=== PATIENT | male | born 1955 | race Caucasian/White ===

== ENCOUNTER 2017-12-13 23:37 | Inpatient (IN) | payer MEDICARE, OTHER ==
[~2017-12-13] VITALS: Ht 172.7 cm; Wt 69.6 kg
[2017-12-13] MEDS ORDERED: SODIUM CHLORIDE 0.9% 1,000 ML IV ONE (23:41)
[2017-12-13] MEDS ORDERED: ALBUTEROL/IPRATROPIUM 2.5MG/0.5MG, 3 ML ONE (23:42)
[2017-12-13] MEDS ORDERED: DILTIAZEM 125 MG in DEXTROSE 5% 100 ML IV SCH (23:45)
[2017-12-13] MEDS: ALBUTEROL/IPRATROPIUM 2.5MG/0.5MG, 3 ML NPPB SCH (23:45)
[2017-12-13] MEDS ORDERED: DILTIAZEM 5 MG/ML, 5ML ONE (23:46)
[2017-12-14] MEDS ORDERED: DILTIAZEM 5 MG/ML, 5ML IV ONE
[2017-12-14] MEDS ORDERED: AZITHROMYCIN 500 MG in SODIUM CHLORIDE 0.9% 250 ML IVPB ONE
[2017-12-14] MEDS ORDERED: SODIUM CHLORIDE FLUSH 10ML SYR IVF ONE
[2017-12-14] MEDS ORDERED: CEFTRIAXONE PMX 1GM/50ML 50 ML IVPB ONE
[2017-12-14 00:02] LABS: MEAN CORPUSCULAR HEMOGLOBIN 32.8 pg (27.5-34.5); MEAN CORPUSCULAR HGB CONC 32.3 g/dL (33.2-36.2); MEAN CORPUSCULAR VOLUME 101.6 fL (81-97); MEAN PLATELET VOLUME 9.6 fL (7.4-10.4); PLATELET COUNT 130 x10^3/uL (130-400); RED BLOOD COUNT 4.44 x10^6/uL (4.38-5.82); RED CELL DISTRIBUTION WIDTH 17.3 % (9.4-14.8)
[2017-12-14] MEDS ORDERED: CEFTRIAXONE PMX 1GM/50ML 50 ML ONE (00:05)
[2017-12-14 00:11] LABS: INTERNATIONAL NORMALIZED RATIO 1.04 (0.93-1.1); PROTHROMBIN TIME 10.7 Seconds (9.6-11.5)
[2017-12-14 00:16] LABS: ALANINE AMINOTRANSFERASE 46 U/L (12-78); ALBUMIN 2.8 g/dL (3.4-5.0); ANION GAP 24 mmol/L (5-15); CALCIUM 8.8 mg/dL (8.5-10.1); CHLORIDE 91 mmol/L (98-107); CREATININE 2.92 mg/dL (0.7-1.3); T4 (THYROXINE) 8.2 mcg/dL (4.5-12.1)
[2017-12-14 00:22] LABS: MD YES
[2017-12-14 00:26] LABS: ALKALINE PHOSPHATASE 33 U/L (45-117); BILIRUBIN,TOTAL 1.5 mg/dL (0.2-1.0); TOTAL PROTEIN 8.3 g/dL (6.4-8.2)
[2017-12-14 00:28] LABS: BAND#(MANUAL) 8.32 x10^3/uL; BANDS%(MANUAL) 32 % (0-7); LYMPH#(MANUAL) 0.78 x10^3/uL (1-3.4); LYMPHS% (MANUAL) 3 % (22-44); MONOS#(MANUAL) 1.56 x10^3/uL (0.3-2.7); MONOS% (MANUAL) 6 % (2-9); REACTIVE LYMPHS # (MANUAL) 1.04 x10^3/uL (0-0); REACTIVE LYMPHS % (MANUAL) 4 % (0-0); SEGS% (MANUAL) 55 % (42-75)
[2017-12-14] MEDS ORDERED: SODIUM CHLORIDE 0.9% 1,000ML IVBOLUS ONE ×2 (00:30)
[2017-12-14] MEDS ORDERED: LORazepam 2 MG/ML, 1ML IVPush PRN ×3 (00:30→11:00)
[2017-12-14] MEDS ORDERED: THIAMINE 100 MG in SODIUM CHLORIDE 0.9% 50 ML IVPB ONE (00:30)
[2017-12-14] MEDS ORDERED: LORazepam 2 MG/ML, 1ML ONE (00:35)
[2017-12-14 00:38] LABS: ANISOCYTOSIS 1+
[2017-12-14 00:39] LABS: POLYCHROMASIA 1+
[2017-12-14 00:40] LABS: SMUDGE CELLS 1+
[2017-12-14 00:42] LABS: <PLATELET ESTIMATE> ADEQUATE; LARGE PLATELETS 1+; PMNS WITH VACUOLES 1+
[2017-12-14] MEDS ORDERED: SODIUM CHLORIDE FLUSH 10ML SYR IVF PRN (02:00)
[2017-12-14] MEDS ORDERED: POLYETHYLENE GLYCOL 17 GM PACKET PO PRN (03:00)
[2017-12-14] MEDS ORDERED: NICOTINE 14MG/24 HR PATCH.TD24 TD SCH (03:00)
[2017-12-14] MEDS ORDERED: ENALAPRILAT 1.25 MG/ML, 2ML IVPush PRN (03:00)
[2017-12-14] MEDS ORDERED: morphine SULFATE 10 MG/ML, 1ML IVPush PRN (03:00)
[2017-12-14] MEDS ORDERED: ONDANSETRON 2MG/ML, 2ML IVPush PRN (03:00)
[2017-12-14] MEDS ORDERED: hydrALAzine 20 MG/ML, 1ML IVPush PRN (03:00)
[2017-12-14] MEDS ORDERED: BISACODYL 10 MG SUPP PR PRN (03:00)
[2017-12-14] MEDS ORDERED: methylPREDNISolone SOD SUCC 125 MG/2 ML IVPush SCH (03:00)
[2017-12-14] MEDS: ALBUTEROL/IPRATROPIUM 2.5MG/0.5MG, 3 ML NPPB SCH ×5 (03:30→19:58)
[2017-12-14 03:51] LABS: FREE T4 (FREE THYROXINE) 1.07 ng/dL (0.76-1.46)
[2017-12-14 04:00] LABS: HEMOGLOBIN A1C 5.4 % (4.2-6.3)
[2017-12-14] MEDS: SODIUM CHLORIDE 0.9% 1,000 ML IV SCH ×2 (04:42→12:29)
[2017-12-14] MEDS: HEPARIN 5,000 UNITS/ML, 1ML SQ SCH ×3 (04:43→20:29)
[2017-12-14] MEDS: methylPREDNISolone SOD SUCC 125 MG/2 ML IVPush SCH ×4 (04:44→21:54)
[2017-12-14 04:55] LABS: CULTURE INDICATED? YES; MICROSCOPIC INDICATED
[2017-12-14 05:33] LABS: CHLORIDE 101 mmol/L (98-107)
[2017-12-14 05:38] LABS: ANION GAP 12 mmol/L (5-15); CALCIUM 7.4 mg/dL (8.5-10.1); CREATININE 2.15 mg/dL (0.7-1.3)
[2017-12-14 05:59] LABS: MEAN CORPUSCULAR HEMOGLOBIN 33.8 pg (27.5-34.5); MEAN CORPUSCULAR HGB CONC 33.5 g/dL (33.2-36.2); RED BLOOD COUNT 3.64 x10^6/uL (4.38-5.82); RED CELL DISTRIBUTION WIDTH 17.7 % (9.4-14.8)
[2017-12-14 06:05] LABS: RAPID INFLUENZA A Negative (Negative); RAPID INFLUENZA B Negative (Negative)
[2017-12-14] MEDS: CARVEDILOL 6.25 MG TABLET PO SCH ×2 (06:17→16:18)
[2017-12-14 06:33] LABS: MD YES; PLATELET COUNT 110 x10^3/uL (130-400)
[2017-12-14 06:35] LABS: BANDS%(MANUAL) 24 % (0-7); MONOS% (MANUAL) 5 % (2-9); SEGS% (MANUAL) 66 % (42-75)
[2017-12-14 06:36] LABS: LYMPHS% (MANUAL) 4 % (22-44); REACTIVE LYMPHS % (MANUAL) 1 % (0-0)
[2017-12-14 06:37] LABS: PMNS WITH VACUOLES 1+
[2017-12-14 06:39] LABS: <PLATELET ESTIMATE> DECREASED; ANISOCYTOSIS 1+; LARGE PLATELETS 1+; POLYCHROMASIA 1+
[2017-12-14] MEDS ORDERED: FAMOTIDINE 20 MG/2 ML IVPush SCH ×2 (09:00→21:00)
[2017-12-14] MEDS ORDERED: DOXYCYCLINE 100MG TABLET PO SCH (09:00)
[2017-12-14] MEDS: SENNA/DOCUSATE TABLET PO SCH (09:00)
[2017-12-14] MEDS: FLUTICASONE/VILANTEROL 200-25MCG/INH INH SCH (09:22)
[2017-12-14] MEDS ORDERED: VANCOMYCIN PER PHARMACY MC PRN (11:30)
[2017-12-14] MEDS ORDERED: PHARMACOKINETIC CONSULTATION MC ONE (11:30)
[2017-12-14] MEDS ORDERED: PHARMACOKINETIC MONITORING MC PRN (11:30)
[2017-12-14] MEDS: CEFTRIAXONE PMX 2GM/50ML 50 ML IV SCH (11:53)
[2017-12-14] MEDS ORDERED: VANCOMYCIN 1,200 MG in SODIUM CHLORIDE 0.9% 250 ML IV SCH (12:00)
[2017-12-14] MEDS: METRONIDAZOLE PMX 500MG/100ML 100 ML IV SCH ×2 (12:23→20:29)
[2017-12-14] MEDS: NICOTINE 21 MG/24 HR PATCH.TD24 TD SCH (12:28)
[2017-12-14] MEDS ORDERED: PHENOBARBITAL SODIUM 680 MG in SODIUM CHLORIDE 0.9% 50 ML IV ONE (14:00)
[2017-12-14] MEDS ORDERED: MAGNESIUM SULFATE PMX 4GM/100M 100 ML IV ONE (14:00)
[2017-12-14] MEDS: THIAMINE 100 MG, FOLIC ACID 1 MG, MVI ADULT 10 ML in SODIUM CHLORIDE 0.9% 1,000 ML IV SCH (14:29)
[2017-12-14 14:58] LABS: MICROSCOPIC INDICATED
[2017-12-14 15:00] LABS: CULTURE INDICATED? NO
[2017-12-14 15:14] LABS: CLOSTRIDIUM DIFFICILE ANTIGEN POSITIVE; CLOSTRIDIUM DIFFICILE TOXIN NEGATIVE (Negative)
[2017-12-14] MEDS: VANCOMYCIN 50 MG/ML ORAL SUSP PO SCH ×2 (16:00→22:02)
[2017-12-14] MEDS ORDERED: PHENOBARBITAL SODIUM IV ONE (20:30)
[2017-12-14] MEDS ORDERED: SODIUM CHLORIDE 0.9% IV ONE (20:30)
[2017-12-14] MEDS: PHENOBARBITAL SODIUM 65 MG/ML, 1ML IM SCH (21:55)
[2017-12-15] MEDS: HEPARIN 5,000 UNITS/ML, 1ML SQ SCH ×3 (02:41→19:00)
[2017-12-15] MEDS: METRONIDAZOLE PMX 500MG/100ML 100 ML IV SCH ×3 (02:41→20:12)
[2017-12-15] MEDS: VANCOMYCIN 50 MG/ML ORAL SUSP PO SCH ×4 (03:25→22:34)
[2017-12-15] MEDS: methylPREDNISolone SOD SUCC 125 MG/2 ML IVPush SCH ×4 (03:25→22:34)
[2017-12-15 04:38] LABS: MEAN CORPUSCULAR HEMOGLOBIN 33.9 pg (27.5-34.5); MEAN CORPUSCULAR HGB CONC 32.9 g/dL (33.2-36.2); RED BLOOD COUNT 3.39 x10^6/uL (4.38-5.82); RED CELL DISTRIBUTION WIDTH 18.1 % (9.4-14.8)
[2017-12-15 04:48] LABS: ANION GAP 13 mmol/L (5-15); CALCIUM 8.1 mg/dL (8.5-10.1); CHLORIDE 107 mmol/L (98-107)
[2017-12-15 04:53] LABS: ALANINE AMINOTRANSFERASE 26 U/L (12-78); ALKALINE PHOSPHATASE 30 U/L (45-117); BILIRUBIN,TOTAL 0.7 mg/dL (0.2-1.0); CHOL/HDL RATIO 2.6; CHOLESTEROL, TOTAL 103 mg/dL (140-239); CREATININE 1.19 mg/dL (0.7-1.3); HDL CHOL % 38 % (26-37); HDL CHOLESTEROL (DIRECT) 39 mg/dL (40-60); LDL CHOLESTEROL,CALCULATED 41 mg/dL (54-169); LDL/HDL RATIO 1.1 (0.5-3.0); TRIGLYCERIDES 117 mg/dL (50-200); VLDL CHOLESTEROL 23 mg/dL (0-25)
[2017-12-15 05:24] LABS: MD YES
[2017-12-15 05:25] LABS: MEAN PLATELET VOLUME 9.8 fL (7.4-10.4); PLATELET COUNT 94 x10^3/uL (130-400)
[2017-12-15 05:26] LABS: ANISOCYTOSIS 1+; BAND#(MANUAL) 0.11 x10^3/uL; BANDS%(MANUAL) 1 % (0-7); LYMPH#(MANUAL) 0.86 x10^3/uL (1-3.4); LYMPHS% (MANUAL) 8 % (22-44); MONOS#(MANUAL) 0.32 x10^3/uL (0.3-2.7); MONOS% (MANUAL) 3 % (2-9); POLYCHROMASIA 1+; SEGS% (MANUAL) 88 % (42-75)
[2017-12-15 05:27] LABS: <PLATELET ESTIMATE> DECREASED; LARGE PLATELETS 1+
[2017-12-15] MEDS: ALBUTEROL/IPRATROPIUM 2.5MG/0.5MG, 3 ML NPPB SCH ×3 (06:08→19:15)
[2017-12-15] MEDS: SENNA/DOCUSATE TABLET PO SCH (09:00)
[2017-12-15] MEDS: CARVEDILOL 6.25 MG TABLET PO SCH ×2 (09:38→18:02)
[2017-12-15] MEDS: NICOTINE 21 MG/24 HR PATCH.TD24 TD SCH (09:40)
[2017-12-15] MEDS: PHENOBARBITAL SODIUM 65 MG/ML, 1ML IM SCH ×2 (09:40→20:13)
[2017-12-15] MEDS: FLUTICASONE/VILANTEROL 200-25MCG/INH INH SCH (09:40)
[2017-12-15] MEDS: SODIUM CHLORIDE 0.9% 1,000 ML IV SCH ×2 (10:30→20:12)
[2017-12-15] MEDS: CEFTRIAXONE PMX 2GM/50ML 50 ML IV SCH (12:14)
[2017-12-15] MEDS: VANCOMYCIN 1,200 MG in SODIUM CHLORIDE 0.9% 250 ML IV SCH (13:49)
[2017-12-15] MEDS: THIAMINE 100 MG, FOLIC ACID 1 MG, MVI ADULT 10 ML in SODIUM CHLORIDE 0.9% 1,000 ML IV SCH (15:10)
[2017-12-15] MEDS: FAMOTIDINE 20 MG/2 ML IVPush SCH (20:13)
[2017-12-15] MEDS ORDERED: POTASSIUM CHLORIDE 40 MEQ in SODIUM CHLORIDE 0.9% 500 ML IV ONE (21:00)
[2017-12-16] MEDS: HEPARIN 5,000 UNITS/ML, 1ML SQ SCH (02:44)
[2017-12-16] MEDS: VANCOMYCIN 50 MG/ML ORAL SUSP PO SCH ×4 (03:29→21:48)
[2017-12-16] MEDS: METRONIDAZOLE PMX 500MG/100ML 100 ML IV SCH (03:29)
[2017-12-16] MEDS: methylPREDNISolone SOD SUCC 125 MG/2 ML IVPush SCH ×4 (03:29→21:48)
[2017-12-16] MEDS: DEXMEDETOMIDINE 200 MCG in SODIUM CHLORIDE 0.9% 48 ML IV PRN ×4 (03:30→23:34)
[2017-12-16 04:46] LABS: ALBUMIN 2.2 g/dL (3.4-5.0); ANION GAP 12 mmol/L (5-15); CALCIUM 8.3 mg/dL (8.5-10.1); CHLORIDE 109 mmol/L (98-107)
[2017-12-16 04:49] LABS: MEAN CORPUSCULAR HEMOGLOBIN 33.5 pg (27.5-34.5); MEAN CORPUSCULAR VOLUME 101.5 fL (81-97); MEAN PLATELET VOLUME 9.2 fL (7.4-10.4); PLATELET COUNT 99 x10^3/uL (130-400); RED BLOOD COUNT 3.79 x10^6/uL (4.38-5.82); RED CELL DISTRIBUTION WIDTH 17.4 % (9.4-14.8)
[2017-12-16 04:51] LABS: ALANINE AMINOTRANSFERASE 21 U/L (12-78); ALKALINE PHOSPHATASE 38 U/L (45-117); BILIRUBIN,TOTAL 0.6 mg/dL (0.2-1.0); CREATININE 0.82 mg/dL (0.7-1.3); TOTAL PROTEIN 6.6 g/dL (6.4-8.2)
[2017-12-16] MEDS: SODIUM CHLORIDE 0.9% 1,000 ML IV SCH ×2 (05:25→09:10)
[2017-12-16] MEDS: CARVEDILOL 6.25 MG TABLET PO SCH ×2 (05:25→17:43)
[2017-12-16] MEDS: VANCOMYCIN 1,200 MG in SODIUM CHLORIDE 0.9% 250 ML IV SCH (05:25)
[2017-12-16 05:46] LABS: MD YES
[2017-12-16 05:49] LABS: BAND#(MANUAL) 0.08 x10^3/uL; BANDS%(MANUAL) 1 % (0-7); LYMPH#(MANUAL) 0.48 x10^3/uL (1-3.4); LYMPHS% (MANUAL) 6 % (22-44); METAMYELOCYTES# (MANUAL) 0.08 x10^3/uL (0-0); METAMYELOCYTES% (MANUAL) 1 % (0-1); MONOS#(MANUAL) 0.56 x10^3/uL (0.3-2.7); MONOS% (MANUAL) 7 % (2-9); SEGS% (MANUAL) 85 % (42-75)
[2017-12-16 05:50] LABS: <PLATELET ESTIMATE> DECREASED; ANISOCYTOSIS 1+; LARGE PLATELETS 1+; POLYCHROMASIA 1+
[2017-12-16 07:08] LABS: HIT RESULT POSITIVE (NEGATIVE)
[2017-12-16] MEDS ORDERED: MAGNESIUM SULFATE PMX 4GM/100M 100 ML IV ONE (07:30)
[2017-12-16] MEDS: FAMOTIDINE 20 MG/2 ML IVPush SCH ×2 (08:56→21:48)
[2017-12-16] MEDS: PHENOBARBITAL SODIUM 65 MG/ML, 1ML IM SCH (08:56)
[2017-12-16] MEDS: FLUTICASONE/VILANTEROL 200-25MCG/INH INH SCH (08:56)
[2017-12-16] MEDS: SENNA/DOCUSATE TABLET PO SCH (08:58)
[2017-12-16] MEDS: NICOTINE 21 MG/24 HR PATCH.TD24 TD SCH (09:02)
[2017-12-16] MEDS: ACETYLCYSTEINE 10%,30ML NPPB SCH ×5 (10:00→22:27)
[2017-12-16] MEDS: ALBUTEROL/IPRATROPIUM 2.5MG/0.5MG, 3 ML NPPB SCH ×5 (10:00→22:27)
[2017-12-16] MEDS: ERGOCALCIFEROL 50,000 UNIT CAPSULE PO SCH (10:10)
[2017-12-16] MEDS: POTASSIUM CHLORIDE 10% 40 MEQ/30 ML UDC PO SCH ×2 (10:10→21:48)
[2017-12-16] MEDS: FONDAPARINUX 2.5 MG/0.5 ML SQ SCH (10:10)
[2017-12-16] MEDS: CEFTRIAXONE PMX 2GM/50ML 50 ML IV SCH (12:30)
[2017-12-16] MEDS ORDERED: THIAMINE 200 MG, FOLIC ACID 1 MG, MVI ADULT 10 ML in SODIUM CHLORIDE 0.9% 1,000 ML IV SCH (14:00)
[2017-12-16] MEDS ORDERED: PHENOBARBITAL SODIUM 65 MG/ML, 1ML IM SCH (21:00)
[2017-12-16] MEDS: PHENOBARBITAL 20 MG/5 ML ORAL SOL NG SCH (21:48)
[2017-12-17] MEDS: ACETYLCYSTEINE 10%,30ML NPPB SCH ×7 (02:13→23:00)
[2017-12-17] MEDS: ALBUTEROL/IPRATROPIUM 2.5MG/0.5MG, 3 ML NPPB SCH ×6 (02:13→23:00)
[2017-12-17] MEDS: methylPREDNISolone SOD SUCC 125 MG/2 ML IVPush SCH ×3 (03:27→21:41)
[2017-12-17] MEDS: SODIUM CHLORIDE 0.9% 1,000 ML IV SCH (03:28)
[2017-12-17] MEDS: VANCOMYCIN 50 MG/ML ORAL SUSP PO SCH ×4 (03:28→21:41)
[2017-12-17 04:35] LABS: MEAN CORPUSCULAR HEMOGLOBIN 33.8 pg (27.5-34.5); MEAN CORPUSCULAR HGB CONC 33.4 g/dL (33.2-36.2); MEAN CORPUSCULAR VOLUME 101.2 fL (81-97); MEAN PLATELET VOLUME 8.9 fL (7.4-10.4); PLATELET COUNT 95 x10^3/uL (130-400); RED BLOOD COUNT 3.75 x10^6/uL (4.38-5.82)
[2017-12-17 04:45] LABS: ANION GAP 7 mmol/L (5-15); CALCIUM 8.1 mg/dL (8.5-10.1); CHLORIDE 106 mmol/L (98-107); CREATININE 0.85 mg/dL (0.7-1.3)
[2017-12-17 04:56] LABS: BASOPHILS % (AUTO) 0 % (0-1); EOSINOPHILS # (AUTO) 0.01 x10^3/uL (0-0.4); EOSINOPHILS % (AUTO) 0 % (1-7); LYMPHOCYTES # (AUTO) 0.25 x10^3/uL (1-3.4); LYMPHOCYTES % (AUTO) 4 % (22-44); MD SCAN; MONOCYTES # (AUTO) 0.76 x10^3/uL (0.2-0.8); MONOCYTES % (AUTO) 13 % (2-9); NEUTROPHILS % (AUTO) 83 % (42-75)
[2017-12-17] MEDS: CARVEDILOL 6.25 MG TABLET PO SCH ×2 (05:25→17:30)
[2017-12-17] MEDS ORDERED: MAGNESIUM SULFATE PMX 4GM/100M 100 ML IV ONE (07:30)
[2017-12-17 08:57] LABS: FIO2 70 %
[2017-12-17] MEDS ORDERED: MULTIVITAMIN LIQUID PO SCH (09:11)
[2017-12-17] MEDS: THIAMINE 100MG TABLET PO SCH (09:11)
[2017-12-17] MEDS: FLUTICASONE/VILANTEROL 200-25MCG/INH INH SCH (10:26)
[2017-12-17] MEDS: FAMOTIDINE 20 MG/2 ML IVPush SCH ×2 (10:28→21:41)
[2017-12-17] MEDS: SENNA/DOCUSATE TABLET PO SCH (10:28)
[2017-12-17] MEDS: FONDAPARINUX 2.5 MG/0.5 ML SQ SCH (10:29)
[2017-12-17] MEDS: NICOTINE 21 MG/24 HR PATCH.TD24 TD SCH (11:55)
[2017-12-17] MEDS: PHENOBARBITAL 20 MG/5 ML ORAL SOL NG SCH ×2 (11:55→21:40)
[2017-12-17] MEDS: FOLIC ACID 1 MG TABLET PO SCH (11:56)
[2017-12-17] MEDS: MULTIVITAMIN LIQUID PO SCH (11:56)
[2017-12-17] MEDS: CEFTRIAXONE PMX 2GM/50ML 50 ML IV SCH (11:56)
[2017-12-18] MEDS: methylPREDNISolone SOD SUCC 125 MG/2 ML IVPush SCH (02:38)
[2017-12-18] MEDS: ACETYLCYSTEINE 10%,30ML NPPB SCH ×6 (02:40→23:03)
[2017-12-18] MEDS: ALBUTEROL/IPRATROPIUM 2.5MG/0.5MG, 3 ML NPPB SCH ×6 (02:40→23:02)
[2017-12-18] MEDS: VANCOMYCIN 50 MG/ML ORAL SUSP PO SCH ×4 (04:28→21:31)
[2017-12-18] MEDS: CARVEDILOL 6.25 MG TABLET PO SCH ×2 (06:21→18:10)
[2017-12-18] MEDS: FLUTICASONE/VILANTEROL 200-25MCG/INH INH SCH (10:26)
[2017-12-18] MEDS: PHENOBARBITAL 20 MG/5 ML ORAL SOL NG SCH ×2 (10:27→21:08)
[2017-12-18] MEDS: FOLIC ACID 1 MG TABLET PO SCH (10:27)
[2017-12-18] MEDS: SENNA/DOCUSATE TABLET PO SCH (10:27)
[2017-12-18] MEDS: MULTIVITAMIN LIQUID PO SCH (10:28)
[2017-12-18] MEDS: THIAMINE 100MG TABLET PO SCH (10:28)
[2017-12-18] MEDS: FONDAPARINUX 2.5 MG/0.5 ML SQ SCH (10:29)
[2017-12-18] MEDS ORDERED: FAMOTIDINE 20 MG TABLET ONE (10:56)
[2017-12-18] MEDS: NICOTINE 21 MG/24 HR PATCH.TD24 TD SCH (11:01)
[2017-12-18] MEDS: FAMOTIDINE 20 MG TABLET PO SCH ×2 (11:01→21:08)
[2017-12-18] MEDS: CEFTRIAXONE PMX 2GM/50ML 50 ML IV SCH (14:54)
[2017-12-18] MEDS ORDERED: PHENOBARBITAL SODIUM 65 MG/ML, 1ML IM SCH (21:00)
[2017-12-19] MEDS ORDERED: ALLOPURINOL 100 MG TABLET ONE (01:08)
[2017-12-19] MEDS: OXYcodone IR 5MG TABLET PO PRN ×3 (01:12→22:59)
[2017-12-19] MEDS: ALLOPURINOL 100 MG TABLET PO SCH ×2 (01:13→20:57)
[2017-12-19] MEDS: ACETYLCYSTEINE 10%,30ML NPPB SCH (03:24)
[2017-12-19] MEDS: ALBUTEROL/IPRATROPIUM 2.5MG/0.5MG, 3 ML NPPB SCH ×4 (03:24→18:42)
[2017-12-19] MEDS: VANCOMYCIN 50 MG/ML ORAL SUSP PO SCH ×4 (03:33→23:15)
[2017-12-19] MEDS: CARVEDILOL 6.25 MG TABLET PO SCH ×2 (05:04→17:59)
[2017-12-19] MEDS: PHENOBARBITAL 20 MG/5 ML ORAL SOL NG SCH ×2 (08:31→20:57)
[2017-12-19] MEDS: FAMOTIDINE 20 MG TABLET PO SCH ×2 (08:32→20:58)
[2017-12-19] MEDS: MULTIVITAMIN LIQUID PO SCH (08:32)
[2017-12-19] MEDS: FOLIC ACID 1 MG TABLET PO SCH (08:32)
[2017-12-19] MEDS: SENNA/DOCUSATE TABLET PO SCH (08:33)
[2017-12-19] MEDS: THIAMINE 100MG TABLET PO SCH (08:33)
[2017-12-19] MEDS: NICOTINE 21 MG/24 HR PATCH.TD24 TD SCH (08:55)
[2017-12-19] MEDS: FONDAPARINUX 2.5 MG/0.5 ML SQ SCH (08:55)
[2017-12-19] MEDS: FLUTICASONE/VILANTEROL 200-25MCG/INH INH SCH (08:55)
[2017-12-19] MEDS: CEFTRIAXONE PMX 2GM/50ML 50 ML IV SCH (11:54)
[2017-12-19] MEDS ORDERED: OMNIPAQUE 350 MG/ML, 75ML BOTTLE ONE (13:56)
[2017-12-19 14:58] VITALS: BP 123/76
[2017-12-19 19:28] VITALS: BP 110/61
[2017-12-19] MEDS ORDERED: PHENOBARBITAL SODIUM 65 MG/ML, 1ML IM SCH (21:00)
[2017-12-20 03:20] LABS: BASOPHILS % (AUTO) 0 % (0-1); EOSINOPHILS # (AUTO) 0.05 x10^3/uL (0-0.4); EOSINOPHILS % (AUTO) 1 % (1-7); LYMPHOCYTES % (AUTO) 9 % (22-44); MD NO; MEAN CORPUSCULAR HEMOGLOBIN 33.5 pg (27.5-34.5); MEAN CORPUSCULAR VOLUME 101.7 fL (81-97); MEAN PLATELET VOLUME 8.1 fL (7.4-10.4); MONOCYTES # (AUTO) 1.06 x10^3/uL (0.2-0.8); MONOCYTES % (AUTO) 10 % (2-9); NEUTROPHILS # (AUTO) 8.84 x10^3/uL (1.8-6.8); NEUTROPHILS % (AUTO) 81 % (42-75); PLATELET COUNT 282 x10^3/uL (130-400); RED BLOOD COUNT 3.33 x10^6/uL (4.38-5.82); RED CELL DISTRIBUTION WIDTH 17.5 % (9.4-14.8)
[2017-12-20 03:31] LABS: ANION GAP 8 mmol/L (5-15); CALCIUM 8.1 mg/dL (8.5-10.1); CHLORIDE 102 mmol/L (98-107)
[2017-12-20 04:03] VITALS: BP 130/100
[2017-12-20] MEDS: OXYcodone IR 5MG TABLET PO PRN ×4 (04:27→23:56)
[2017-12-20] MEDS: VANCOMYCIN 50 MG/ML ORAL SUSP PO SCH ×4 (05:17→23:49)
[2017-12-20] MEDS: CARVEDILOL 6.25 MG TABLET PO SCH ×2 (05:17→18:31)
[2017-12-20 05:18] VITALS: BP 130/80
[2017-12-20 07:00] VITALS: BP 165/86
[2017-12-20] MEDS: ALBUTEROL/IPRATROPIUM 2.5MG/0.5MG, 3 ML NPPB SCH ×4 (07:00→20:00)
[2017-12-20] MEDS: SENNA/DOCUSATE TABLET PO SCH (08:08)
[2017-12-20] MEDS: ALLOPURINOL 100 MG TABLET PO SCH ×2 (08:37→21:18)
[2017-12-20] MEDS: FAMOTIDINE 20 MG TABLET PO SCH ×2 (08:37→21:18)
[2017-12-20] MEDS: FOLIC ACID 1 MG TABLET PO SCH (08:37)
[2017-12-20] MEDS: THIAMINE 100MG TABLET PO SCH (08:37)
[2017-12-20] MEDS: NICOTINE 21 MG/24 HR PATCH.TD24 TD SCH (08:38)
[2017-12-20] MEDS: PHENOBARBITAL 20 MG/5 ML ORAL SOL NG SCH (08:38)
[2017-12-20] MEDS: FONDAPARINUX 2.5 MG/0.5 ML SQ SCH (08:38)
[2017-12-20] MEDS: MULTIVITAMIN LIQUID PO SCH (08:38)
[2017-12-20] MEDS: FLUTICASONE/VILANTEROL 200-25MCG/INH INH SCH (08:38)
[2017-12-20] MEDS ORDERED: LIDOCAINE 1%, 20ML ONE (11:18)
[2017-12-20] MEDS: CEFTRIAXONE PMX 2GM/50ML 50 ML IV SCH (12:48)
[2017-12-20 13:16] VITALS: BP 139/77
[2017-12-20 19:07] VITALS: BP 150/95
[2017-12-20] MEDS ORDERED: MAGNESIUM SULFATE PMX 4GM/100M 100 ML IV ONE (23:30)
[2017-12-21 00:13] VITALS: BP 158/91
[2017-12-21] MEDS: CARVEDILOL 6.25 MG TABLET PO SCH ×2 (06:16→17:41)
[2017-12-21] MEDS: VANCOMYCIN 50 MG/ML ORAL SUSP PO SCH ×3 (06:19→17:41)
[2017-12-21 06:42] LABS: MEAN CORPUSCULAR HEMOGLOBIN 33.6 pg (27.5-34.5); MEAN CORPUSCULAR VOLUME 101.7 fL (81-97); MEAN PLATELET VOLUME 7.9 fL (7.4-10.4); PLATELET COUNT 376 x10^3/uL (130-400); RED BLOOD COUNT 3.46 x10^6/uL (4.38-5.82); RED CELL DISTRIBUTION WIDTH 17.8 % (9.4-14.8)
[2017-12-21 06:54] LABS: ALANINE AMINOTRANSFERASE 54 U/L (12-78); ALBUMIN 2.1 g/dL (3.4-5.0); ANION GAP 7 mmol/L (5-15); CALCIUM 8.1 mg/dL (8.5-10.1); CHLORIDE 101 mmol/L (98-107); CREATININE 0.63 mg/dL (0.7-1.3)
[2017-12-21 06:56] LABS: ALKALINE PHOSPHATASE 62 U/L (45-117); BILIRUBIN,TOTAL 0.6 mg/dL (0.2-1.0); TOTAL PROTEIN 5.9 g/dL (6.4-8.2)
[2017-12-21] MEDS: ALBUTEROL/IPRATROPIUM 2.5MG/0.5MG, 3 ML NPPB SCH (07:00)
[2017-12-21 07:03] LABS: BASOPHILS % (AUTO) 1 % (0-1); EOSINOPHILS # (AUTO) 0.07 x10^3/uL (0-0.4); EOSINOPHILS % (AUTO) 1 % (1-7); LYMPHOCYTES # (AUTO) 1.09 x10^3/uL (1-3.4); LYMPHOCYTES % (AUTO) 8 % (22-44); MD SCAN; MONOCYTES % (AUTO) 6 % (2-9); NEUTROPHILS # (AUTO) 12.07 x10^3/uL (1.8-6.8); NEUTROPHILS % (AUTO) 85 % (42-75)
[2017-12-21 07:38] VITALS: BP 141/81
[2017-12-21] MEDS ORDERED: ALBUTEROL/IPRATROPIUM 2.5MG/0.5MG, 3 ML NPPB PRN (08:00)
[2017-12-21] MEDS: NICOTINE 21 MG/24 HR PATCH.TD24 TD SCH (09:19)
[2017-12-21] MEDS: THIAMINE 100MG TABLET PO SCH (09:19)
[2017-12-21] MEDS: FOLIC ACID 1 MG TABLET PO SCH (09:19)
[2017-12-21] MEDS: ALLOPURINOL 100 MG TABLET PO SCH ×2 (09:19→20:14)
[2017-12-21] MEDS: FAMOTIDINE 20 MG TABLET PO SCH ×2 (09:19→20:14)
[2017-12-21] MEDS: MULTIVITAMIN LIQUID PO SCH (09:20)
[2017-12-21] MEDS: FONDAPARINUX 2.5 MG/0.5 ML SQ SCH (09:20)
[2017-12-21] MEDS: SENNA/DOCUSATE TABLET PO SCH (09:20)
[2017-12-21] MEDS: FLUTICASONE/VILANTEROL 200-25MCG/INH INH SCH (09:22)
[2017-12-21] MEDS: CEFTRIAXONE PMX 2GM/50ML 50 ML IV SCH (11:40)
[2017-12-21 13:28] VITALS: BP 149/90
[2017-12-21] MEDS: OXYcodone IR 5MG TABLET PO PRN (17:41)
[2017-12-21 20:20] VITALS: BP 157/89
[2017-12-22] MEDS: VANCOMYCIN 50 MG/ML ORAL SUSP PO SCH ×4 (00:06→18:30)
[2017-12-22 03:33] VITALS: BP 157/99
[2017-12-22] MEDS: CARVEDILOL 6.25 MG TABLET PO SCH ×2 (06:14→18:31)
[2017-12-22] MEDS: OXYcodone IR 5MG TABLET PO PRN ×3 (06:14→18:35)
[2017-12-22 07:57] VITALS: BP 146/88
[2017-12-22] MEDS: FOLIC ACID 1 MG TABLET PO SCH (08:33)
[2017-12-22] MEDS: MULTIVITAMIN LIQUID PO SCH (08:33)
[2017-12-22] MEDS: FAMOTIDINE 20 MG TABLET PO SCH ×2 (08:34→21:31)
[2017-12-22] MEDS: ALLOPURINOL 100 MG TABLET PO SCH ×2 (08:34→21:31)
[2017-12-22] MEDS: THIAMINE 100MG TABLET PO SCH (08:34)
[2017-12-22] MEDS: SENNA/DOCUSATE TABLET PO SCH (08:34)
[2017-12-22] MEDS: FONDAPARINUX 2.5 MG/0.5 ML SQ SCH (08:35)
[2017-12-22] MEDS: NICOTINE 21 MG/24 HR PATCH.TD24 TD SCH (08:36)
[2017-12-22] MEDS: FLUTICASONE/VILANTEROL 200-25MCG/INH INH SCH (08:37)
[2017-12-22 12:27] LABS: MEAN CORPUSCULAR HEMOGLOBIN 33.8 pg (27.5-34.5); MEAN CORPUSCULAR HGB CONC 33.1 g/dL (33.2-36.2); MEAN CORPUSCULAR VOLUME 102.2 fL (81-97); MEAN PLATELET VOLUME 8.1 fL (7.4-10.4); PLATELET COUNT 519 x10^3/uL (130-400); RED BLOOD COUNT 3.62 x10^6/uL (4.38-5.82); RED CELL DISTRIBUTION WIDTH 17.5 % (9.4-14.8)
[2017-12-22 13:06] LABS: MD YES
[2017-12-22 13:09] LABS: LYMPH#(MANUAL) 0.61 x10^3/uL (1-3.4); LYMPHS% (MANUAL) 3 % (22-44); MONOS#(MANUAL) 1.02 x10^3/uL (0.3-2.7); MONOS% (MANUAL) 5 % (2-9); SEG#(MANUAL) 18.77 x10^3/uL (1.8-6.8); SEGS% (MANUAL) 92 % (42-75)
[2017-12-22 13:10] LABS: <PLATELET ESTIMATE> INCREASED; <PLT MORPHOLOGY> NORMAL PLT MORPH; ANISOCYTOSIS 1+; TOXIC GRAN 1+
[2017-12-22] MEDS: CEFTRIAXONE PMX 2GM/50ML 50 ML IV SCH (13:34)
[2017-12-22 20:26] VITALS: BP 139/82
[2017-12-23] MEDS: VANCOMYCIN 50 MG/ML ORAL SUSP PO SCH ×4 (00:09→18:36)
[2017-12-23 02:35] VITALS: BP 148/84
[2017-12-23 05:29] LABS: MEAN CORPUSCULAR HEMOGLOBIN 33.7 pg (27.5-34.5); MEAN CORPUSCULAR VOLUME 102.1 fL (81-97); MEAN PLATELET VOLUME 8.4 fL (7.4-10.4); PLATELET COUNT 457 x10^3/uL (130-400); RED CELL DISTRIBUTION WIDTH 17.6 % (9.4-14.8)
[2017-12-23 05:37] LABS: ANION GAP 6 mmol/L (5-15); CALCIUM 8.3 mg/dL (8.5-10.1); CHLORIDE 103 mmol/L (98-107)
[2017-12-23 05:38] LABS: CREATININE 0.66 mg/dL (0.7-1.3)
[2017-12-23] MEDS: CARVEDILOL 6.25 MG TABLET PO SCH ×2 (06:11→18:36)
[2017-12-23] MEDS: OXYcodone IR 5MG TABLET PO PRN ×2 (06:11→18:38)
[2017-12-23 06:41] LABS: MD YES
[2017-12-23 06:43] LABS: ANISOCYTOSIS 1+; BAND#(MANUAL) 0.16 x10^3/uL; BANDS%(MANUAL) 1 % (0-7); EOS#(MANUAL) 0.16 x10^3/uL (0.0-0.4); EOS% (MANUAL) 1 % (1-7); LYMPH#(MANUAL) 1.44 x10^3/uL (1-3.4); LYMPHS% (MANUAL) 9 % (22-44); METAMYELOCYTES# (MANUAL) 0.16 x10^3/uL (0-0); METAMYELOCYTES% (MANUAL) 1 % (0-1); MONOS#(MANUAL) 1.92 x10^3/uL (0.3-2.7); MONOS% (MANUAL) 12 % (2-9); SEG#(MANUAL) 12.16 x10^3/uL (1.8-6.8); SEGS% (MANUAL) 76 % (42-75); TOXIC GRAN 1+
[2017-12-23 06:44] LABS: <PLATELET ESTIMATE> INCREASED; <PLT MORPHOLOGY> NORMAL PLT MORPH
[2017-12-23 08:30] VITALS: BP 141/87
[2017-12-23] MEDS: SENNA/DOCUSATE TABLET PO SCH (09:00)
[2017-12-23] MEDS: FONDAPARINUX 2.5 MG/0.5 ML SQ SCH (09:00)
[2017-12-23] MEDS: MULTIVITAMIN LIQUID PO SCH (09:26)
[2017-12-23] MEDS: NICOTINE 21 MG/24 HR PATCH.TD24 TD SCH (09:27)
[2017-12-23] MEDS: THIAMINE 100MG TABLET PO SCH (09:28)
[2017-12-23] MEDS: ALLOPURINOL 100 MG TABLET PO SCH ×2 (09:28→21:21)
[2017-12-23] MEDS: FAMOTIDINE 20 MG TABLET PO SCH ×2 (09:28→21:21)
[2017-12-23] MEDS: FOLIC ACID 1 MG TABLET PO SCH (09:28)
[2017-12-23] MEDS: FLUTICASONE/VILANTEROL 200-25MCG/INH INH SCH (09:30)
[2017-12-23] MEDS: ERGOCALCIFEROL 50,000 UNIT CAPSULE PO SCH (09:57)
[2017-12-23 14:08] VITALS: BP 132/83
[2017-12-23] MEDS: CEFTRIAXONE PMX 2GM/50ML 50 ML IV SCH (15:33)
[2017-12-23 20:25] VITALS: BP 111/83
[2017-12-24] MEDS: VANCOMYCIN 50 MG/ML ORAL SUSP PO SCH ×4 (00:12→17:47)
[2017-12-24 06:02] VITALS: BP 153/97
[2017-12-24] MEDS: OXYcodone IR 5MG TABLET PO PRN ×2 (06:06→17:47)
[2017-12-24] MEDS: CARVEDILOL 6.25 MG TABLET PO SCH ×2 (06:06→17:47)
[2017-12-24 06:35] LABS: MEAN CORPUSCULAR HEMOGLOBIN 33.2 pg (27.5-34.5); MEAN CORPUSCULAR HGB CONC 32.3 g/dL (33.2-36.2); MEAN CORPUSCULAR VOLUME 102.8 fL (81-97); MEAN PLATELET VOLUME 8.1 fL (7.4-10.4); PLATELET COUNT 441 x10^3/uL (130-400); RED BLOOD COUNT 3.38 x10^6/uL (4.38-5.82); RED CELL DISTRIBUTION WIDTH 17.5 % (9.4-14.8)
[2017-12-24 07:39] LABS: MD YES
[2017-12-24 07:40] LABS: BAND#(MANUAL) 0.16 x10^3/uL; BANDS%(MANUAL) 1 % (0-7); LYMPH#(MANUAL) 1.73 x10^3/uL (1-3.4); LYMPHS% (MANUAL) 11 % (22-44); MONOS% (MANUAL) 14 % (2-9); SEG#(MANUAL) 11.62 x10^3/uL (1.8-6.8); SEGS% (MANUAL) 74 % (42-75)
[2017-12-24 07:41] LABS: <PLATELET ESTIMATE> INCREASED; <PLT MORPHOLOGY> NORMAL PLT MORPH; ANISOCYTOSIS 1+
[2017-12-24 08:08] VITALS: BP 152/86
[2017-12-24] MEDS: SENNA/DOCUSATE TABLET PO SCH (09:00)
[2017-12-24] MEDS: FONDAPARINUX 2.5 MG/0.5 ML SQ SCH (09:00)
[2017-12-24] MEDS: FLUTICASONE/VILANTEROL 200-25MCG/INH INH SCH (09:12)
[2017-12-24] MEDS: THIAMINE 100MG TABLET PO SCH (09:13)
[2017-12-24] MEDS: FOLIC ACID 1 MG TABLET PO SCH (09:13)
[2017-12-24] MEDS: FAMOTIDINE 20 MG TABLET PO SCH ×2 (09:13→20:37)
[2017-12-24] MEDS: ALLOPURINOL 100 MG TABLET PO SCH ×2 (09:13→20:37)
[2017-12-24] MEDS: NICOTINE 21 MG/24 HR PATCH.TD24 TD SCH (09:14)
[2017-12-24] MEDS: MULTIVITAMIN LIQUID PO SCH (09:15)
[2017-12-24] MEDS: CEFTRIAXONE PMX 2GM/50ML 50 ML IV SCH (11:37)
[2017-12-24 13:49] VITALS: BP 138/82
[2017-12-24 18:46] VITALS: BP 150/86
[2017-12-25] MEDS: VANCOMYCIN 50 MG/ML ORAL SUSP PO SCH ×4 (00:05→16:48)
[2017-12-25] MEDS: OXYcodone IR 5MG TABLET PO PRN ×3 (00:14→12:24)
[2017-12-25 01:25] VITALS: BP 136/73
[2017-12-25] MEDS: CARVEDILOL 6.25 MG TABLET PO SCH ×2 (05:31→16:48)
[2017-12-25 07:38] VITALS: BP 154/93
[2017-12-25] MEDS: FOLIC ACID 1 MG TABLET PO SCH (08:27)
[2017-12-25] MEDS: ALLOPURINOL 100 MG TABLET PO SCH (08:27)
[2017-12-25] MEDS: THIAMINE 100MG TABLET PO SCH (08:27)
[2017-12-25] MEDS: NICOTINE 21 MG/24 HR PATCH.TD24 TD SCH (08:28)
[2017-12-25] MEDS: FAMOTIDINE 20 MG TABLET PO SCH (08:28)
[2017-12-25] MEDS: SENNA/DOCUSATE TABLET PO SCH (08:28)
[2017-12-25] MEDS: FONDAPARINUX 2.5 MG/0.5 ML SQ SCH (08:28)
[2017-12-25] MEDS: MULTIVITAMIN LIQUID PO SCH (08:29)
[2017-12-25] MEDS: FLUTICASONE/VILANTEROL 200-25MCG/INH INH SCH (08:29)
[2017-12-25] MEDS: CEFTRIAXONE PMX 2GM/50ML 50 ML IV SCH (12:24)
[2017-12-25 13:22] VITALS: BP 130/98
[2017-12-25 13:24] VITALS: BP 141/83
[2017-12-25] MEDS ORDERED: ERGO500017 PO (15:39)
[2017-12-25] MEDS ORDERED: FLUT1BLS INH (15:39)
[2017-12-25] MEDS ORDERED: NICO-487 TD (15:39)
[2017-12-25] MEDS ORDERED: FOND2.5D3 SQ (15:39)
[2017-12-25] MEDS ORDERED: CARV6.2512 PO (15:39)
[2017-12-25] MEDS ORDERED: FOLI-17 PO (15:39)
[2017-12-25] MEDS ORDERED: ALLO100T30 PO (15:39)
[2017-12-25] MEDS ORDERED: MULT-658 PO (15:40)
[2017-12-25] MEDS ORDERED: VANC125C2 PO (15:40)
[2017-12-25] MEDS ORDERED: THIA100T6 PO (15:40)
[2017-12-25] MEDS ORDERED: PRED10TA PO (15:40)
[2017-12-25] MEDS ORDERED: CEFT2FRO2 IV (15:41)
[2017-12-25] MEDS ORDERED: SENN1TAB7 PO (15:57)
== END 2017-12-25 18:02 | DRG 871 ==
LOC: ED 23:59 → EDBD 12-14 01:39 → EDIP 12-14 01:39 → CCU 12-14 03:54 → 3NW 12-19 12:41
PROVIDERS: ADMIT Internal Medicine; ATTEND Family Medicine
PROC: 0W993ZZ Drainage of Right Pleural Cavity, Percutaneous Approach (ICD-10-PCS; principal; 2017-12-20)
PROC: 02HV33Z Insertion of Infusion Device into Superior Vena Cava, Percutaneous Approach (ICD-10-PCS; 2017-12-23)
PROC: B548ZZA Ultrasonography of Superior Vena Cava, Guidance (ICD-10-PCS; 2017-12-23)
DX: A40.3 Sepsis due to Streptococcus pneumoniae (principal); J96.01 Acute respiratory failure with hypoxia; N17.0 Acute kidney failure with tubular necrosis; E43 Unspecified severe protein-calorie malnutrition; F10.231 Alcohol dependence with withdrawal delirium; J90 Pleural effusion, not elsewhere classified; A04.72 Enterocolitis due to Clostridium difficile, not specified as recurrent; J13 Pneumonia due to Streptococcus pneumoniae; J44.0 Chronic obstructive pulmonary disease with (acute) lower respiratory infection; J44.1 Chronic obstructive pulmonary disease with (acute) exacerbation; J98.11 Atelectasis; D75.82 Heparin induced thrombocytopenia (HIT); I27.20 Pulmonary hypertension, unspecified; E53.8 Deficiency of other specified B group vitamins; E55.9 Vitamin D deficiency, unspecified; G89.29 Other chronic pain; I10 Essential (primary) hypertension; I34.0 Nonrheumatic mitral (valve) insufficiency; I48.91 Unspecified atrial fibrillation; I77.810 Thoracic aortic ectasia; K70.10 Alcoholic hepatitis without ascites; N28.89 Other specified disorders of kidney and ureter; F17.210 Nicotine dependence, cigarettes, uncomplicated; Z59.0 Homelessness; Z78.9 Other specified health status; Z79.899 Other long term (current) drug therapy; Z68.23 Body mass index [BMI] 23.0-23.9, adult
CPT/HCPCS: 32555; 36415; 36569; 36600; 71045; 71260; 76770; 76937; 77001; 80048; 80053; 80061; 81001; 82306; 82607; 82803; 82945; 83036; 83605; 83615; 83735; 83880; 83970; 84100; 84157; 84436; 84439; 84443; 84484; 85025; 85610; 85730; 86022; 87040; 87070; 87077; 87081; 87086; 87181; 87205; 87324; 87400; 87493; 88112; 88305; 89051; 93005; 93306; 93970; 94640; 96365; 96366; 96367; 96368; 96375; 96376; J0456; J0696; J1644; J2560; J3370; J3411; J3480; J3490; J7608; J7620; Q9967; C1751; J1652; J2060; J2930; J3475; J7030; J7040; J7050; J7512; S0028